=== PATIENT | male | born 1950 | race Caucasian/White ===

== ENCOUNTER 2016-04-03 12:31 | Inpatient (IN) | payer MEDICARE, OTHER ==
[2016-04-03 13:19] LABS: Anisocytosis Slight; Basophils % (A) 0 %; CH 31.3; CHCM 32.8; Eosinophils # (A) 0.1 k/uL (0-0.7); Eosinophils % (A) 2 %; HCT 36.3 % (39.0-53.0); HDW 2.91; HGB 11.7 gm/dL (13.0-17.5); Luc # (Auto) 0.14; Luc % (Auto) 2; Lymphocytes # (A) 0.7 k/uL (1.0-4.8); Lymphocytes % (A) 12 %; MCHC 32.2 g/dL (31.0-37.0); Mean Platelet Volume 8.2; Monocytes # (A) 0.5 k/uL (0-1.0); Monocytes % (A) 8 %; Neutrophils # (A) 4.8 k/uL (1.3-7.7); Neutrophils % (A) 76 %; RBC 3.78 m/uL (4.30-5.90); RDW 16.4 % (11.5-15.5); WBC 6.3 k/uL (3.8-10.6); WBC (Perox) 6.46
--- NOTE | 2016-04-03 13:20 | XR ---
EXAMINATION TYPE: XR chest 2V DATE OF EXAM: 04/03/2016 1:12 PM COMPARISON: 09/06/2015 HISTORY: Difficulty breathing FINDINGS: The lungs are clear and there is no pneumothorax or focal pneumonia. Diffuse interstitial pattern a nd cardiomegaly noted. Degenerative change of the spine. Tiny left pleural effusion. Ill-defined dens ity overlying the medial aspect of the right upper lobe. Postsurgical change right shoulder. IMPRESSION: 1. Cardiomegaly with small left pleural effusion correlate, for mild venous congestion. 2. Vague nodularity along the medial margin the right upper lobe could be on the basis of superimpose d structures. Neoplasm or infiltrate felt less likely. Short-term follow-up PA and lateral views the chest recommended.
[2016-04-03 13:24] LABS: ALT 33 U/L (21-72); AST 41 U/L (17-59); Alkaline Phosphatase 82 U/L (38-126); Anion Gap 11 mmol/L; Blood Urea Nitrogen 16 mg/dL (9-20); Calcium 8.9 mg/dL (8.4-10.2); Carbon Dioxide 26 mmol/L (22-30); Chloride 107 mmol/L (98-107); Glucose 104 mg/dL (74-99); Magnesium 1.7 mg/dL (1.6-2.3); Non-African American GFR(MDRD) >60 (>60 ml/min/1.73 sqM); Sodium 144 mmol/L (137-145); Total Protein 6.7 g/dL (6.3-8.2)
[2016-04-03 13:29] LABS: INR 2.6 (<1.1); Partial Thromboplastin Time 30.2 sec (22.0-30.0); Potassium 5.2 mmol/L (3.5-5.1); Prothrombin Time 24.7 sec (9.0-12.0)
[2016-04-03] MEDS ORDERED: predniSONE 20 MG TAB PO STA (13:48)
[2016-04-03] MEDS ORDERED: IPRATROPIUM-ALBUTEROL 3 ML NEB INHALATION STA (13:48)
[2016-04-03] MEDS ORDERED: LEVALBUTEROL NEB 1.25 MG/3 ML AMP INHALATION STA (14:00)
[2016-04-03] MEDS ORDERED: IPRATROPIUM 0.5 MG/2.5 ML NEBU INHALATION STA (14:01)
[2016-04-03 14:03] LABS: Creatine Kinase 88 U/L (55-170)
[2016-04-03 14:16] LABS: Creatine Kinase MB 1.2 ng/mL (0.0-2.4); Troponin I <0.012 ng/mL (0.000-0.034)
[2016-04-03 15:06] LABS: Appearance,Urine Clear (Clear); Bilirubin,Urine Negative (Negative); Glucose,Urine (UA) Negative (Negative); Ketones,Urine Negative (Negative); Leukocyte Esterase,Urine Negative (Negative); Nitrite,Urine Negative (Negative); PH, Urine 5.5 (5.0-8.0); Protein,Urine Negative (Negative); Specific Gravity,Urine 1.016 (1.001-1.035); UA Billing (MACRO vs. MICRO) CHEM; Urobilinogen,Urine <2.0 mg/dL (<2.0)
[2016-04-03] MEDS ORDERED: FUROSEMIDE 10 MG/ML 4 ML VIAL IV STA (15:55)
--- NOTE | 2016-04-03 16:48 | ED ---
SOB HPI - General Chief Complaint: Shortness of Breath Stated Complaint: exacerbation CHF Time Seen by Provider: 04/03/16 12:36 Source: EMS, RN notes reviewed Mode of arrival: EMS Limitations: no limitations - History of Present Illness Initial Comments: This patient is 66-year-old man who presents with shortness of breath as well as cough with a little bit of white sputum and some lower extremity edema. He states the symptoms have been getting worse over approximately a day. He does have history of both COPD and CHF and states it feels like the heart failure has been flaring up. Patient denies any preceding chest pain. He denies change in urination or pain or swelling of the calves. MD Complaint: shortness of breath, cough Onset/Timin -: days(s) - Related Data Home Medications Medication Instructions Recorded Confirmed Warfarin [Coumadin] 5 mg PO SUTUWETHSA 05/17/14 04/03/16 Warfarin [Coumadin] 7.5 mg PO MOFR 05/17/14 04/03/16 Enalapril Maleate [Vasotec] 20 mg PO DAILY 04/27/15 04/03/16 Pravastatin Sodium [Pravachol] 20 mg PO HS 04/27/15 04/03/16 Omeprazole [PriLOSEC] 20 mg PO AC-BRKT 09/06/15 04/03/16 amLODIPine [Norvasc] 2.5 mg PO DAILY 09/06/15 04/03/16 glipiZIDE [Glucotrol] 5 mg PO AC-BRKFST 09/06/15 04/03/16 Budesonide [Pulmicort Flexhaler] 1 puff INHALATION RT-BID 04/03/16 04/03/16 Docusate [Colace] 100 mg PO BID 04/03/16 04/03/16 Folic Acid/Multivit-Min/Lutein 1 tab PO DAILY 04/03/16 04/03/16 [Therapeutic-M Tablet] Gabapentin [Neurontin] 400 mg PO TID 04/03/16 04/03/16 Loratadine [Claritin] 10 mg PO DAILY 04/03/16 04/03/16 Metoprolol Succinate (ER) [Toprol 25 mg PO DAILY 04/03/16 04/03/16 Xl] Potassium Chloride [Klor-Con 20] 20 meq PO BID 04/03/16 04/03/16 Tamsulosin HCl [Flomax] 0.4 mg PO DAILY 04/03/16 04/03/16 Previous Rx's Medication Instructions Recorded Furosemide [Lasix] 40 mg PO DAILY #30 tab 02/08/14 Allergies Allergy/AdvReac Type Severity Reaction Status Date / Time albuterol Allergy Rapid Verified 04/03/16 12:42 Heart Rate Fish Containing Products Allergy Unknown Verified 04/03/16 12:54 Review of Systems ROS Statement: Those systems with pertinent positive or pertinent negative responses have been documented in the HPI. ROS Other: All systems not noted in ROS Statement are negative. Constitutional: Denies: fever, chills, weakness Respiratory: Reports: cough, dyspnea. Denies: hemoptysis Cardiovascular: Reports: orthopnea, edema. Denies: chest pain, palpitations, syncope Gastrointestinal: Denies: abdominal pain, nausea, vomiting Genitourinary: Denies: dysuria, hematuria Musculoskeletal: Denies: back pain Skin: Denies: rash Neurological: Denies: headache, weakness, numbness Past Medical History Past Medical History: Atrial Fibrillation, Diabetes Mellitus, Hyperlipidemia, Hypertension, Pneumonia, Prostate Disorder History of Any Multi-Drug Resistant Organisms: None Reported Past Surgical History: Hernia Repair, Joint Replacement, Orthopedic Surgery Additional Past Surgical History / Comment(s): carpel tunnel Past Psychological History: Depression Smoking Status: Never smoker Past Alcohol Use History: None Reported Past Drug Use History: None Reported - Past Family History Father History Unknown: Yes Additional Family Medical History / Comment(s): PT WAS ADOPTED Mother History Unknown: Yes Additional Family Medical History / Comment(s): PT WAS ADOPTED General Exam Limitations: no limitations General appearance: alert, in no apparent distress, obese Head exam: Present: atraumatic, normocephalic Eye exam: Present: normal appearance. Absent: scleral icterus, conjunctival injection Neck exam: Present: normal inspection Respiratory exam: Present: wheezes (Mild expiratory), rales (Bilateral bases). Absent: rhonchi, stridor, chest wall tenderness, accessory muscle use Cardiovascular Exam: Present: regular rate, irregular rhythm, normal heart sounds. Absent: systolic murmur, diastolic murmur, rubs, gallop GI/Abdominal exam: Present: soft. Absent: distended, tenderness, guarding, rebound, mass Extremities exam: Present: normal inspection, normal capillary refill, pedal edema. Absent: calf tenderness Back exam: Absent: CVA tenderness (R), CVA tenderness (L) Neurological exam: Present: alert Skin exam: Present: warm, dry, intact, normal color. Absent: rash Course Vital Signs 04/03/16 04/03/16 04/03/16 12:40 13:40 14:17 Temperature 98.0 F Pulse Rate 62 58 L 55 L Respiratory 20 Rate Blood Pressure 150/79 133/63 O2 Sat by Pulse 99 96 Oximetry 04/03/16 04/03/16 04/03/16 14:40 14:42 15:40 Temperature Pulse Rate 60 70 58 L Respiratory Rate Blood Pressure 161/66 170/63 O2 Sat by Pulse 94 L 98 Oximetry 04/03/16 16:40 Temperature Pulse Rate 58 L Respiratory Rate Blood Pressure 147/68 O2 Sat by Pulse 100 Oximetry Medical Decision Making - Lab Data Result diagrams: 04/03/16 12:37 04/03/16 12:37 Lab Results 04/03/16 04/03/16 04/03/16 Range/Units 12:37 12:37 12:37 WBC 6.3 (3.8-10.6) k/uL RBC 3.78 L (4.30-5.90) m/uL Hgb 11.7 L (13.0-17.5) gm/dL Hct 36.3 L (39.0-53.0) % MCV 96.0 (80.0-100.0) fL MCH 31.0 (25.0-35.0) pg MCHC 32.2 (31.0-37.0) g/dL RDW 16.4 H (11.5-15.5) % Plt Count 215 (150-450) k/uL Neutrophils % 76 % Lymphocytes % 12 % Monocytes % 8 % Eosinophils % 2 % Basophils % 0 % Neutrophils # 4.8 (1.3-7.7) k/uL Lymphocytes # 0.7 L (1.0-4.8) k/uL Monocytes # 0.5 (0-1.0) k/uL Eosinophils # 0.1 (0-0.7) k/uL Basophils # 0.0 (0-0.2) k/uL Anisocytosis Slight PT (9.0-12.0) sec INR (<1.1) APTT (22.0-30.0) sec D-Dimer (<0.60) mg/L FEU Sodium 144 (137-145) mmol/L Potassium 5.2 H (3.5-5.1) mmol/L Chloride 107 (98-107) mmol/L Carbon Dioxide 26 (22-30) mmol/L Anion Gap 11 mmol/L BUN 16 (9-20) mg/dL Creatinine 1.02 (0.66-1.25) mg/dL Est GFR (MDRD) Af Amer >60 (>60 ml/min/1.73 sqM) Est GFR (MDRD) Non-Af >60 (>60 ml/min/1.73 sqM) Glucose 104 H (74-99) mg/dL Calcium 8.9 (8.4-10.2) mg/dL Magnesium 1.7 (1.6-2.3) mg/dL Total Bilirubin 1.0 (0.2-1.3) mg/dL AST 41 (17-59) U/L ALT 33 (21-72) U/L Alkaline Phosphatase 82 (38-126) U/L Total Creatine Kinase 88 (55-170) U/L CK-MB (CK-2) 1.2 (0.0-2.4) ng/mL CK-MB (CK-2) Rel Index 1.4 Troponin I <0.012 (0.000-0.034) ng/mL NT-Pro-B Natriuret Pep pg/mL Total Protein 6.7 (6.3-8.2) g/dL Albumin 3.7 (3.5-5.0) g/dL Urine Color Urine Appearance (Clear) Urine pH (5.0-8.0) Ur Specific [place] (1.001-1.035) Urine Protein (Negative) Urine Glucose (UA) (Negative) Urine Ketones (Negative) Urine Blood (Negative) Urine Nitrate (Negative) Urine Bilirubin (Negative) Urine Urobilinogen (<2.0) mg/dL Ur Leukocyte Esterase (Negative) 04/03/16 04/03/16 04/03/16 Range/Units 12:37 12:37 14:55 WBC (3.8-10.6) k/uL RBC (4.30-5.90) m/uL Hgb (13.0-17.5) gm/dL Hct (39.0-53.0) % MCV (80.0-100.0) fL MCH (25.0-35.0) pg MCHC (31.0-37.0) g/dL RDW (11.5-15.5) % Plt Count (150-450) k/uL Neutrophils % % Lymphocytes % % Monocytes % % Eosinophils % % Basophils % % Neutrophils # (1.3-7.7) k/uL Lymphocytes # (1.0-4.8) k/uL Monocytes # (0-1.0) k/uL Eosinophils # (0-0.7) k/uL Basophils # (0-0.2) k/uL Anisocytosis PT 24.7 H (9.0-12.0) sec INR 2.6 (<1.1) APTT 30.2 H (22.0-30.0) sec D-Dimer 0.38 (<0.60) mg/L FEU Sodium (137-145) mmol/L Potassium (3.5-5.1) mmol/L Chloride (98-107) mmol/L Carbon Dioxide (22-30) mmol/L Anion Gap mmol/L BUN (9-20) mg/dL Creatinine (0.66-1.25) mg/dL Est GFR (MDRD) Af Amer (>60 ml/min/1.73 sqM) Est GFR (MDRD) Non-Af (>60 ml/min/1.73 sqM) Glucose (74-99) mg/dL Calcium (8.4-10.2) mg/dL Magnesium (1.6-2.3) mg/dL Total Bilirubin (0.2-1.3) mg/dL AST (17-59) U/L ALT (21-72) U/L Alkaline Phosphatase (38-126) U/L Total Creatine Kinase (55-170) U/L CK-MB (CK-2) (0.0-2.4) ng/mL CK-MB (CK-2) Rel Index Troponin I (0.000-0.034) ng/mL NT-Pro-B Natriuret Pep 2820 pg/mL Total Protein (6.3-8.2) g/dL Albumin (3.5-5.0) g/dL Urine Color Yellow Urine Appearance Clear (Clear) Urine pH 5.5 (5.0-8.0) Ur Specific [place] 1.016 (1.001-1.035) Urine Protein Negative (Negative) Urine Glucose (UA) Negative (Negative) Urine Ketones Negative (Negative) Urine Blood Negative (Negative) Urine Nitrate Negative (Negative) Urine Bilirubin Negative (Negative) Urine Urobilinogen <2.0 (<2.0) mg/dL Ur Leukocyte Esterase Negative (Negative) - EKG Data -: EKG Interpreted by Ma EKG shows normal: axis (Normal), intervals (Normal), QRS complexes (Low voltage QRS complex) Interpretation: other (Atrial fibrillation with rate approximately 63 bpm) Disposition Clinical Impression: Congestive heart failure Disposition: ADMITTED IP TO THIS [facility] Condition: Fair
[2016-04-03 17:57] LABS: Glucose,Whole Blood 154 mg/dL (75-99)
[2016-04-03] MEDS: GABAPENTIN 400 MG CAP PO SCH ×2 (18:06→21:50)
[2016-04-03] MEDS: WARFARIN 5 MG TAB PO SCH (18:07)
[2016-04-03] MEDS: ACETAMINOPHEN TAB 325 MG TAB PO PRN (20:06)
[2016-04-03] MEDS: DOCUSATE 100 MG CAP PO SCH (20:07)
[2016-04-03] MEDS: POTASSIUM CHLORIDE ER 20 MEQ TAB.ER PO SCH (20:07)
[2016-04-03] MEDS: FUROSEMIDE 10 MG/ML 4 ML VIAL IV SCH (20:07)
[2016-04-03] MEDS: PRAVASTATIN SODIUM 20 MG TAB PO SCH (20:07)
[2016-04-03 20:48] LABS: Glucose,Whole Blood 168 mg/dL (75-99)
[2016-04-03] MEDS: BUDESONIDE 0.5 MG/2 ML NEBU INHALATION SCH (23:28)
[2016-04-03] MEDS: IPRATROPIUM-ALBUTEROL 3 ML NEB INHALATION SCH (23:28)
--- NOTE | 2016-04-04 07:30 | HP ---
DATE OF ADMISSION: 04/03/2016 PRESENTING COMPLAINT: Short of breath. HISTORY OF PRESENTING COMPLAINT: This is a 66-year-old patient of Dr. Jessica Brody with extensive medical history. Patient's chronic medical conditions include atrial fibrillation, diabetes mellitus type 2, hyperlipidemia, hypertension, prostate disorder, depression, also congestive heart failure, EF of 50% to 55%, pulmonary hypertension. The patient has been progressively getting more and more short of breath, was recently in [facility] where he was treated for bronchospasm and atrial fibrillation. The patient went to see Dr. Jessica Brody today and she sent the patient to the ER the way he looked. Patient noted to have wheezing, cough, sputum production yellow-green color. Appetite has dwindled. Denies any fever. Feels tired. Edema is present REVIEW OF SYSTEMS: CONSTITUTIONAL: Tired. HEENT: None. RESPIRATORY: As above. CARDIOVASCULAR: As above. GASTROINTESTINAL: None. GENITOURINARY: None. MUSCULOSKELETAL: Aches and pains in his joints. Neck pain. DERMATOLOGICAL: None. HEMATOLOGICAL: None. LYMPHATICS: None. PSYCHIATRY: None. NEUROLOGICAL: None. Past history of CHF with EF 50%, tricuspid regurgitation, pulmonary hypertension, hyperlipidemia, diabetes mellitus type 2, cervical spine DJD, atrial fibrillation. PAST SURGICAL HISTORY: Hernia repair, joint replacement, carpal tunnel. SOCIAL HISTORY: Does not smoke. Lives in a place with different people having single apartment. No smoking. No alcohol. FAMILY HISTORY: Reviewed, noncontributory to presentation. HOME MEDICATIONS: 1. Coumadin 7.5 mg Thursday and Thursday and 5 mg on Thursday, Thursday, Thursday, , Thursday. 2. Pravachol 20 mg q.h.s. 3. Potassium 20 mEq p.o. b.i.d. 4. Therapeutic M 1 tablet p.o. daily. 5. Glucotrol 5 mg at breakfast. 6. Prilosec 20 mg p.o. breakfast. 7. Toprol XL 25 mg p.o. daily. 8. Claritin 10 mg p.o. daily. 9. Norvasc 2.5 mg p.o. daily. 10. Neurontin 400 mg p.o. t.i.d. 11. Lasix 40 mg p.o. daily. 12. Vasotec 20 mg p.o. daily. 13. Colace 100 mg p.o. b.i.d. 14. Flomax 0.4 mg p.o. daily. 15. Pulmicort Flexhaler 1 puff b.i.d. Allergies to ALBUTEROL and FISH OIL. On examination, temperature 98.3, pulse 86, respiration 20, blood pressure 145/72, pulse ox 96% on 2 L. GENERAL APPEARANCE: Morbidly obese; BMI of 44. Lying in bed, slight short of breath. EYES: Pupils equal. Conjunctivae normal. HEENT: External appearance of nose and ears normal. Oral cavity normal. NECK: JVD unable to assess. Mass not palpable. RESPIRATORY: Effort increased. LUNGS: Diminished breath sounds, some wheezing. CARDIOVASCULAR: First and second seconds normal. Edema present. ABDOMEN: Distended, soft. Liver and spleen not palpable. LYMPHATIC: No lymph node palpable in neck or axillae. PSYCHIATRY: Alert and oriented x3. Mood and affect normal. NEUROLOGICAL: Pupils equal. Cranial nerves grossly intact. Power and sensation grossly intact. MUSCULOSKELETAL: Evidence of osteoarthritis. INVESTIGATIONS: White count 6.3, hemoglobin 11.7. INR 2.6. Potassium 5.2. BUN and creatinine normal. ProBNP 2820. Chest x-ray shows possible ( ) on the right side. ASSESSMENT: 1. Right middle lobe pneumonia, consider gram-negative organism. 2. Acute bronchospasm. 3. Possibly acute on chronic congestive heart failure exacerbation diastolic dysfunction; ejection fraction 50% to 55% in 2014. 4. Moderate to severe tricuspid regurgitation. 5. Moderate severe pulmonary hypertension. 6. Essential hypertension. 7. Hyperlipidemia. 8. Diabetes mellitus, type 2. 9. Coumadin monitoring for therapeutic level. 10. Obesity, body mass index greater than 40, morbid type. 11. Cervical spine degenerative joint disease. 12. Persistent atrial fibrillation, rate controlled. PLAN: Patient is put on nebulized bronchodilator. Home medications are resumed. Patient will also get an IV Lasix. Will get Cardiology consultation. Patient also put on ceftriaxone. Care was discussed with the patient.
[2016-04-04] MEDS: FUROSEMIDE 10 MG/ML 4 ML VIAL IV SCH (07:46)
[2016-04-04 07:47] LABS: INR 2.4 (<1.1); Prothrombin Time 23.3 sec (9.0-12.0)
[2016-04-04] MEDS: GABAPENTIN 400 MG CAP PO SCH ×3 (07:47→22:00)
[2016-04-04] MEDS: PANTOPRAZOLE 40 MG TABLET PO SCH (07:47)
[2016-04-04] MEDS: DOCUSATE 100 MG CAP PO SCH ×2 (07:48→22:00)
[2016-04-04 07:50] LABS: Glucose,Whole Blood 130 mg/dL (75-99)
[2016-04-04] MEDS: amLODIPine 2.5 MG TAB PO SCH (08:00)
[2016-04-04] MEDS: POTASSIUM CHLORIDE ER 20 MEQ TAB.ER PO SCH ×2 (08:00→22:01)
[2016-04-04] MEDS: LISINOPRIL 20 MG TAB PO SCH (08:00)
[2016-04-04 08:01] LABS: Anion Gap 12 mmol/L; Blood Urea Nitrogen 20 mg/dL (9-20); Calcium 9.2 mg/dL (8.4-10.2); Carbon Dioxide 27 mmol/L (22-30); Chloride 104 mmol/L (98-107); Glucose 149 mg/dL (74-99); Non-African American GFR(MDRD) >60 (>60 ml/min/1.73 sqM); Potassium 4.6 mmol/L (3.5-5.1); Sodium 143 mmol/L (137-145)
[2016-04-04] MEDS: IPRATROPIUM-ALBUTEROL 3 ML NEB INHALATION SCH ×4 (08:31→19:59)
[2016-04-04] MEDS: BUDESONIDE 0.5 MG/2 ML NEBU INHALATION SCH ×2 (08:31→19:59)
[2016-04-04] MEDS: METOPROLOL SUCCINATE (ER) 25 MG TAB.ER.24H PO SCH (09:14)
[2016-04-04] MEDS: glipiZIDE 5 MG TAB PO SCH (09:14)
[2016-04-04] MEDS: TAMSULOSIN 0.4 MG CAP.ER.24H PO SCH (09:15)
[2016-04-04] MEDS: ACETAMINOPHEN TAB 325 MG TAB PO PRN ×2 (09:17→21:59)
[2016-04-04 12:11] LABS: Glucose,Whole Blood 94 mg/dL (75-99)
[2016-04-04] MEDS ORDERED: RX INFO: IV CONTRAST WAS GIVEN 1 EACH MISC MISCELLANE PRN (13:32)
[2016-04-04 14:08] VITALS: BMI 48.6
--- NOTE | 2016-04-04 15:29 | CT ---
EXAMINATION TYPE: CT chest w con DATE OF EXAM: 04/04/2016 3:06 PM COMPARISON: 04/03/2016 HISTORY: 66-year-old male shortness of breath, history of mass. TECHNIQUE: Contiguous axial scanning of the chest after the administration of 100 mL of Omnipaque 300 . Coronal/sagittal reconstructions performed. CT DLP: 584.6mGycm. Automatic exposure control utilized for a dose reduction. FINDINGS: The heart is mildly enlarged without pericardial effusion. Severe coronary vessel calcifications are present under a marker for coronary artery disease. Ascending aorta measures at the upper limits of normal at 3.5 cm. Mild apical scarring calcifications with conventional arch vessel branching anatomy. Mildly enlarged caliber to the main right and left pulmonary arteries at 2.6 cm each suggesting under lying pulmonary arterial hypertension. Nonenlarged mediastinal lymph nodes are present measuring up to 9 mm in the paratracheal region and 1 .0 cm subcarinal region. No thoracic lymphadenopathy by CT size criteria. There is distention of the azygos vein. There is a fluid attenuating structure seen along the superior right heart margin extending along the right lateral aspect of the ascending aorta and IVC. This structure measures up to 4.5 cm wide, 3.4 cm AP, and 7.1 cm craniocaudal. There is an irregular focal opacity in the right suprahilar region measuring 1 cm, axial image 18 and coronal image 68. Numerous scattered pulmonary nodules are present throughout measuring from 4 to 6 mm. For example, re ning to the lower lobe axial image 46 and peripheral right base axial image 39. There is some patchy posterior left basilar airspace opacity with adjacent 6 mm pulmonary nodule, axi al image 46. Scattered groundglass is demonstrated such as within the superior segment right lower lobe axial imag e 27 and inferior lingula, axial image 33. No significant pleural effusion. Visualized upper abdomen shows an exophytic 2.8 cm cyst from the lateral left kidney. Some prominent right retrocrural lymph nodes are nonspecific measuring 8 mm and appear to have been present on 2014.. Bones: Moderate endplate spondylosis especially in the mid to lower thoracic spine. No osseous destru ctive process. IMPRESSION: 1. Mild cardiomegaly, suspected pulmonary arterial hypertension, and distention of the azygos vein. C orrelate for mild fluid overload. There is no pleural effusion or roma pulmonary edema. 2. An irregular 1 cm right suprahilar pulmonary nodule. Recommend 3 month follow-up exam to reassess this area. Early lung cancer is not excluded at this time. 3. Patchy airspace disease posterior left base could represent an infectious infiltrate. Clinically c orrelate. Other scattered patchy areas of groundglass could represent the same process. 4. Fluid density structure along the upper right heart margin and ascending aorta measures up to 7.1 cm. Findings could represent an unusual pericardial recess or atypical position of a pericardial cyst . This can be reassessed at follow-up. 5. Additional bilateral pulmonary nodules measuring up to 6 mm. These should be followed. 2 years of stability would support a benign etiology.
[2016-04-04] MEDS: FUROSEMIDE 40 MG TAB PO SCH (15:46)
[2016-04-04] MEDS: MULTIVITAMINS, THERA 1 EACH TAB PO SCH (15:47)
--- NOTE | 2016-04-04 15:53 | CONS ---
DATE OF CONSULTATION: This is a 66-year-old gentleman who is obese, has type 2 diabetes, hypertension, hyperlipidemia, persistent atrial fibrillation, on anticoagulation. He went to see his primary care physician, Dr. Jessica Brody, and was then advised to go to the emergency room. He has been having increasing cough, shortness of breath, productive sputum, and with these symptoms he came into the hospital. He also had some abdominal hernia in the past and complained of some epigastric and lower chest discomfort. Discomfort in the chest is atypical, and this has resolved. Initial troponin is normal. He is resting comfortably without symptoms. He has a history of smoking in the past. He does not smoke now. He also has a history of persistent atrial fibrillation, degenerative joint disease, type 2 diabetes, history of COPD with some reactive airway disease component. At the time of my evaluation he is resting comfortably without symptoms. PAST MEDICAL HISTORY: 1. Atrial fibrillation, on anticoagulation with good rate control. 2. Type 2 diabetes. 3. Hypertension. 4. Hyperlipidemia. 5. Obesity. 6. History of bronchial asthma/ COPD. Medications at home include: 1. Coumadin. 2. Pravachol. 3. Glucotrol. 4. Prilosec. 5. Toprol XL 25 mg daily. 6. Norvasc. 7. Lasix 40 mg daily. 8. Vasotec 20 mg daily. 9. Inhalers. SOCIAL HISTORY: He does not smoke at this time but is a past smoker. He is status post joint replacement, hernia repair. Previous echocardiogram apparently was in the range of about 55%. This was about 2 years ago. At the time of my evaluation he is comfortable resting without symptoms. Physical examination revealed a blood pressure of 140/70. Pulse rate is about 80 and irregular. HEENT: Unremarkable. Fundus was not examined by me. Neck is supple. There is JVD of at least 1 to 1.5 cm. There is no carotid bruit. Heart exam reveals S1, S2 with a short systolic murmur and irregular rhythm. Lungs reveal diminished air entry in bilateral lung samson. No rales. ABDOMEN: Soft and nontender. Lower extremities reveal diminished pulses. CENTRAL NERVOUS SYSTEM: Grossly no focal deficits. EKG revealed atrial fibrillation, controlled ventricular rate, nonspecific ST-T changes, low voltage criteria, non-diagnostic inferior Q waves. Laboratory data revealed unremarkable troponins, modest elevation of BNP. Chest x-ray raises the possibility of malignancy with nodularity on the medial margin of the right upper lobe. There is no significant congestion. IMPRESSION: 1. Exacerbation of chronic obstructive pulmonary disease. 2. Atypical chest pain. 3. Abdominal discomfort. 4. Chronic atrial fibrillation, controlled ventricular rate. 5. Probable pneumonia with abnormal chest x-ray. Rule out malignancy. RECOMMENDATIONS: I am recommending that we switch him from IV to oral Lasix and get an echocardiogram to reassess LV function, since the last study was 2 years ago. I will check an additional troponin. Advised to have a CT scan of the chest without contrast and also seek pulmonary input from Dr. Rowell. I discussed my thoughts in detail with the patient. Thank you very much for the consult.
--- NOTE | 2016-04-04 16:14 | P.CNPUL ---
History of Present Illness Consult date: 04/04/16 Reason for consult: dyspnea, abnormal CXR/CT History of present illness: 66-year-old morbidly obese male patient, known to me for his obstructive sleep apnea that was diagnosed several years back and the patient was found to have moderately severe disease with an apnea popping index of 21 and was treated with CPAP. The patient also has multiple other medical comorbidities including chronic atrial fibrillation, diabetes mellitus, hyperlipidemia, moderately severe pulmonary hypertension as evident on previous echocardiograms. The patient states that he was in the hospital at [facility] approximately 10 days ago for complications of atrial fibrillation. Apparently was having A. fib with RVR and he was controlled and discharged home. Note that he is on long-term medical evaluation with warfarin. Following his discharge, he started expressing some cough and sputum production or shortness of breath and for that reason he presented today [facility] for further advice. Note that he has chronic atypical chest pain which she describes to be over the anterior chest and migrating to the right and left side without any association to exertion or activity. No pleurisy. No hemoptysis. No fever or chills. No major swelling in lower extremities. His chest x-ray shows a vague no other past in the right upper lobe and there is some potential infiltration of the retrocardiac area. For that reason a pulmonary consultation was requested. The patient is a nonsmoker. No reported aspiration. No travel history. Review of Systems Further review of system was done and the positive findings are almost above the history of present illness. The patient remains in atrial fibrillation for now. He is on long-term and coagulation. No Falls. No head trauma. No other complaints otherwise. Past Medical History Past Medical History: Atrial Fibrillation, Diabetes Mellitus, Hyperlipidemia, Hypertension, Pneumonia, Prostate Disorder Additional Past Medical History / Comment(s): Morbid obesity, obstructive sleep apnea maintained on CPAP with a baseline apnea popping index of 21, chronic atrial fibrillation, diabetes mellitus type 2, hypertension, hyperlipidemia, obesity, kidney cyst, peripheral neuropathy, restless leg syndrome, gout, osteoarthritis, umbilical hernia, history of hepatitis C viral infection, cataracts, chronic back pain, carpal tunnel disease, History of Any Multi-Drug Resistant Organisms: None Reported Past Surgical History: Hernia Repair, Joint Replacement, Orthopedic Surgery Additional Past Surgical History / Comment(s): carpel tunnel Past Anesthesia/Blood Transfusion Reactions: No Reported Reaction Past Psychological History: Depression Additional Psychological History / Comment(s): AT TIME OF THIS ADMIT, PT DENIES ANY PROBLEM WITH DEPRESSION OR ANY SUICIDAL THOUGHTS. PT LIVES IN HOUSE HAS 4 HOUSE MATES. RECIEVES MEALS ON WHEELS.TAKES THE BUS. Smoking Status: Never smoker Past Alcohol Use History: None Reported Past Drug Use History: None Reported - Past Family History Father History Unknown: Yes Additional Family Medical History / Comment(s): PT WAS ADOPTED Mother History Unknown: Yes Additional Family Medical History / Comment(s): PT WAS ADOPTED Medications and Allergies Home Medications Medication Instructions Recorded Confirmed Type Warfarin [Coumadin] 5 mg PO SUTUWETHSA 05/17/14 04/03/16 History Warfarin [Coumadin] 7.5 mg PO MOFR 05/17/14 04/03/16 History Enalapril Maleate [Vasotec] 20 mg PO DAILY 04/27/15 04/03/16 History Pravastatin Sodium [Pravachol] 20 mg PO HS 04/27/15 04/03/16 History Omeprazole [PriLOSEC] 20 mg PO AC-BRKFST 09/06/15 04/03/16 History amLODIPine [Norvasc] 2.5 mg PO DAILY 09/06/15 04/03/16 History glipiZIDE [Glucotrol] 5 mg PO AC-BRKFST 09/06/15 04/03/16 History Budesonide [Pulmicort Flexhaler] 1 puff INHALATION RT-BID 04/03/16 04/03/16 History Docusate [Colace] 100 mg PO BID 04/03/16 04/03/16 History Folic Acid/Multivit-Min/Lutein 1 tab PO DAILY 04/03/16 04/03/16 History [Therapeutic-M Tablet] Gabapentin [Neurontin] 400 mg PO TID 04/03/16 04/03/16 History Loratadine [Claritin] 10 mg PO DAILY 04/03/16 04/03/16 History Metoprolol Succinate (ER) [Toprol 25 mg PO DAILY 04/03/16 04/03/16 History Xl] Potassium Chloride [Klor-Con 20] 20 meq PO BID 04/03/16 04/03/16 History Tamsulosin HCl [Flomax] 0.4 mg PO DAILY 04/03/16 04/03/16 History Allergies Allergy/AdvReac Type Severity Reaction Status Date / Time albuterol Allergy Rapid Verified 04/03/16 12:42 Heart Rate Fish Containing Products Allergy Unknown Verified 04/03/16 12:54 Physical Exam Vitals: Vital Signs Temp Pulse Pulse Pulse Resp BP BP 04/04/16 15:00 97.9 F 81 20 116/64 04/04/16 08:42 68 04/04/16 08:31 68 04/04/16 07:00 97.7 F 54 L 18 04/03/16 22:20 99.4 F 81 24 04/03/16 22:10 81 24 04/03/16 18:16 98.3 F 86 20 04/03/16 16:40 58 L 147/68 BP Pulse Ox 04/04/16 15:00 93 L 04/04/16 08:42 04/04/16 08:31 04/04/16 07:00 130/61 95 04/03/16 22:20 116/88 92 L 04/03/16 22:10 04/03/16 18:16 145/72 96 04/03/16 16:40 100 Intake and Output 04/04/16 04/04/16 04/04/16 06:59 14:59 22:59 Intake Total 240 60 Balance 240 60 Intake: IV 60 .9 flush 10 cefTRIAXone 1,000 mg In 50 Sodium Chloride 0.9% 50 ml @ 100 mls/hr IVPB Q24HR [facility] Rx#:[id number] Oral 240 Other: # Voids 2 Weight 132.5 kg Patient Weight 04/05/16 06:59 Weight 132.5 kg Morbidly obese, calm and comfortable not in acute distress.Head exam was generally normal. There was no scleral icterus or corneal arcus. Mucous membranes were moist. Neck is short and supple and there is significant crowding of the posterior oropharynx. His daughter neck masses. Lungs sounds are diminished and there are some scattered rhonchi heard bilaterally throughout the lung samson. Heart sounds are irregular, positive S1-S2, no S3, no S4, no murmurs. Abdomen obese soft nontender. There is an umbilical hernia which is easily reducible. There is no direct tenderness or rebound tenderness or guarding.Examination of the extremities revealed easily palpable radial, femoral and pedal pulses. There was no cyanosis, clubbing or edema. Results - Laboratory Findings CBC and BMP: 04/03/16 12:37 04/04/16 07:22 PT/INR, D-dimer PT 23.3 sec (9.0-12.0) H 04/04/16 07:22 INR 2.4 (<1.1) 04/04/16 07:22 D-Dimer 0.38 mg/L FEU (<0.60) 04/03/16 12:37 Abnormal lab findings: Abnormal Labs 04/03/16 04/03/16 04/04/16 17:56 20:46 07:22 PT Glucose 149 H POC Glucose (mg/dL) 154 H 168 H 04/04/16 04/04/16 07:22 07:34 PT 23.3 H Glucose POC Glucose (mg/dL) 130 H - Diagnostic Findings Chest x-ray: image reviewed Assessment and Plan Plan: Assessment 1 acute bronchitis. The patient is presenting with symptoms of acute bronchitis with cough and congestion and some dyspnea. Chest x-ray is showing some nodular opacity in the right upper lobe and vague infiltration of the left retrocardiac space. The patient will have a computed tomography scan of the chest to better characterize abnormalities 2 morbid obesity 3 obstructive sleep apnea. Based on apnea popping index of 21 and the patient was supposed to be on a CPAP pressure of 11 cm of water. 4 chronic atrial fibrillation, rate controlled with a therapeutic PT/INR. 5 diabetes mellitus type 2 6 hypertension 7 hyperlipidemia 8 degenerative arthritis 9 long-term articulation for chronic atrial fibrillation fibrillation and the patient has a therapeutic PT/INR. Plan Continued IV Rocephin. Proceed with a CAT scan of the chest with contrast for the above-mentioned reasons. We'll continue to follow.
[2016-04-04 17:08] LABS: Glucose,Whole Blood 67 mg/dL (75-99)
--- NOTE | 2016-04-04 17:19 | P.CONS ---
History of Present Illness - Chief Complaint Medical debility - History of Present Illness I had the opportunity to see patient for inpatient rehab consultation with regard to medical debility. He was admitted to [facility] April 03 with COPD exacerbation. Seen by Dr. Rowell who diagnosed acute bronchitis. Chest CT demonstrates at least borderline cardiomegaly and pulmonary hypertension. Noted right supra hilar nodule, bilateral pulmonary nodules and patchy infiltrates. Chest x-ray demonstrated cardiomegaly in the nodularity. PT reports supervision to minimal assistance for functional debility and gait 100 feet with roller walker. Patient reports that he walked a distance of the hallway from room to and of fall and back, with 4 wheeled walker and therapist. Reports independent in room with 4 wheeled walker noted IV is removed. OT prescribed. Previous functional history: As elicited from patient. 66-year-old right- handed white male who is and lives in one one floor home with 3 friends. Describes independent with own cooking, laundry, standup shower leaning against the wall and gait with 4 wheeled walker. Given of driving secondary to sleep apnea. Regular doctor is Dr. Lopez. Family history: Unknown as adopted. Review of Systems Review of systems: ENT: Denies sneezes or discharge. Eyes: Denies discharge or photophobia. Cardiac: Denies chest pain or palpitation. Pulmonary: At least mild shortness of breath with mild chest discomfort that is long-standing. Gastrointestinal: Mild discomfort in abdomen and pelvis, long-standing. Genitourinary: Denies discharge or frequency. Musculoskeletal: Denies muscle or bone aches. Neurologic: Denies motor or sensory change. Endocrine: Denies shakes or sweats. Oncology: Denies cancers. Dermatologic: Denies rash, itching, pruritus. ALLERGY/immunology: Denies sneezes, rashes. Past Medical History Past Medical History: Atrial Fibrillation, Diabetes Mellitus, Hyperlipidemia, Hypertension, Pneumonia, Prostate Disorder Additional Past Medical History / Comment(s): Morbid obesity, obstructive sleep apnea maintained on CPAP with a baseline apnea popping index of 21, chronic atrial fibrillation, diabetes mellitus type 2, hypertension, hyperlipidemia, obesity, kidney cyst, peripheral neuropathy, restless leg syndrome, gout, osteoarthritis, umbilical hernia, history of hepatitis C viral infection, cataracts, chronic back pain, carpal tunnel disease, History of Any Multi-Drug Resistant Organisms: None Reported Past Surgical History: Hernia Repair, Joint Replacement, Orthopedic Surgery Additional Past Surgical History / Comment(s): carpel tunnel Past Anesthesia/Blood Transfusion Reactions: No Reported Reaction Past Psychological History: Depression Additional Psychological History / Comment(s): AT TIME OF THIS ADMIT, PT DENIES ANY PROBLEM WITH DEPRESSION OR ANY SUICIDAL THOUGHTS. PT LIVES IN HOUSE HAS 4 HOUSE MATES. RECIEVES MEALS ON WHEELS.TAKES THE BUS. Smoking Status: Never smoker Past Alcohol Use History: None Reported Past Drug Use History: None Reported - Past Family History Father History Unknown: Yes Additional Family Medical History / Comment(s): PT WAS ADOPTED Mother History Unknown: Yes Additional Family Medical History / Comment(s): PT WAS ADOPTED Medications and Allergies Home Medications Medication Instructions Recorded Confirmed Type Warfarin [Coumadin] 5 mg PO SUTUWETHSA 05/17/14 04/03/16 History Warfarin [Coumadin] 7.5 mg PO MOFR 05/17/14 04/03/16 History Enalapril Maleate [Vasotec] 20 mg PO DAILY 04/27/15 04/03/16 History Pravastatin Sodium [Pravachol] 20 mg PO HS 04/27/15 04/03/16 History Omeprazole [PriLOSEC] 20 mg PO AC-KT 09/06/15 04/03/16 History amLODIPine [Norvasc] 2.5 mg PO DAILY 09/06/15 04/03/16 History glipiZIDE [Glucotrol] 5 mg PO AC-BRKFST 09/06/15 04/03/16 History Budesonide [Pulmicort Flexhaler] 1 puff INHALATION RT-BID 04/03/16 04/03/16 History Docusate [Colace] 100 mg PO BID 04/03/16 04/03/16 History Folic Acid/Multivit-Min/Lutein 1 tab PO DAILY 04/03/16 04/03/16 History [Therapeutic-M Tablet] Gabapentin [Neurontin] 400 mg PO TID 04/03/16 04/03/16 History Loratadine [Claritin] 10 mg PO DAILY 04/03/16 04/03/16 History Metoprolol Succinate (ER) [Toprol 25 mg PO DAILY 04/03/16 04/03/16 History Xl] Potassium Chloride [Klor-Con 20] 20 meq PO BID 04/03/16 04/03/16 History Tamsulosin HCl [Flomax] 0.4 mg PO DAILY 04/03/16 04/03/16 History Allergies Allergy/AdvReac Type Severity Reaction Status Date / Time albuterol Allergy Rapid Verified 04/03/16 12:42 Heart Rate Fish Containing Products Allergy Unknown Verified 04/03/16 12:54 Physical Exam Vitals: Vital Signs Temp Pulse Pulse Pulse Resp BP BP 04/04/16 15:00 97.9 F 81 20 116/64 04/04/16 08:42 68 04/04/16 08:31 68 04/04/16 07:00 97.7 F 54 L 18 130/61 04/03/16 22:20 99.4 F 81 24 116/88 04/03/16 22:10 81 24 04/03/16 18:16 98.3 F 86 20 145/72 Pulse Ox 04/04/16 15:00 93 L 04/04/16 08:42 04/04/16 08:31 04/04/16 07:00 95 04/03/16 22:20 92 L 04/03/16 22:10 04/03/16 18:16 96 Intake and Output 04/04/16 04/04/16 04/04/16 06:59 14:59 22:59 Intake Total 240 60 Balance 240 60 Intake: IV 60 .9 flush 10 cefTRIAXone 1,000 mg In 50 Sodium Chloride 0.9% 50 ml @ 100 mls/hr IVPB Q24HR [facility] Rx#:[id number] Oral 240 Other: # Voids 2 Weight 132.5 kg Patient Weight 04/05/16 06:59 Weight 132.5 kg Skin: Good color, texture, turgor. General: Obese and comfortable appearance. Head: Normocephalic, atraumatic. Eyes: Symmetric. Pupils equal round. Ears: Symmetric. Hearing within normal limits. Mouth: Clear. Neck: Supple. Carotid without bruit. Cardiac: Regular rate and rhythm. Lungs: Clear anteriorly and posteriorly. Abdomen: Soft active nontender, overweight. Extremities: Normal tone. Trace to 1+ edema forelegs and ankles. Neurological: Mental status: Alert, cooperative, pleasant. Cranial nerves: Symmetric facial tone and trapezius. Motor: Good active movement in both arms. Able to move both legs but difficulty elevating off of bed. Sensation: Intact throughout. DTRs: Symmetric and equal throughout, absent. Mobility: In the middle nursing care and unable to sit or stand. Results CBC & Chem 7: 04/03/16 12:37 04/04/16 07:22 Labs: Abnormal Lab Results - Last 24 Hours (Table) 04/03/16 04/03/16 04/04/16 Range/Units 17:56 20:46 07:22 PT (9.0-12.0) sec Glucose 149 H (74-99) mg/dL POC Glucose (mg/dL) 154 H 168 H (75-99) mg/dL 04/04/16 04/04/16 04/04/16 Range/Units 07:22 07:34 17:05 PT 23.3 H (9.0-12.0) sec Glucose (74-99) mg/dL POC Glucose (mg/dL) 130 H 67 L (75-99) mg/dL Chest x-ray: report reviewed (Cardiomegaly and nodularity.) CT scan - chest: report reviewed (At least borderline cardiomegaly and pulmonary hypertension. Right suprahilar nodule as well as bilateral pulmonary nodules noted. Possible. She infiltrates, as well.) Assessment and Plan (1) Pneumonia Status: Acute Plan: Impression: 1. Medical debility. 2. COPD exacerbation. 3. Acute bronchitis with pneumonia. 4. Morbid obesity. 5. Diabetes. 6. Hypertension. 7. Hyperlipidemia. 8. Active fibrillation. 9. Sleep apnea. Comments and plan: At this time physical and occupational therapies prescribed. Anticipate patient should do well functionally, that is anticipate functional return or improvement with medical treatment and resolution of problem. Note he was just admitted yesterday and so there has been no delay in his rehabilitation program.
[2016-04-04 17:28] LABS: Glucose,Whole Blood 69 mg/dL (75-99)
[2016-04-04] MEDS ORDERED: WARFARIN 7.5 MG TAB PO SCH (18:00)
[2016-04-04] MEDS: methylPREDNISolone SOD SUCCI 40 MG/ML 1 ML VIAL IV SCH ×2 (18:11→23:50)
[2016-04-04] MEDS: AZITHROMYCIN 500 MG TAB PO SCH (18:11)
--- NOTE | 2016-04-04 19:00 | PN ---
DATE OF SERVICE: 04/04/2016 PRESENTING COMPLAINT: Short of breath. INTERVAL HISTORY: This patient was admitted with what appears to be pneumonia, bronchospasm; possible CHF exacerbation. Patient has severe secondary pulmonary hypertension. Patient's sputum production actually has gone down. Two-D echo is pending. Cardiology switched the Lasix to p.o. Review of systems done for constitutional, cardiovascular, GI, pulmonary; relevant findings as above. Current medications are reviewed and include IV ceftriaxone, nebulized bronchodilator, Coumadin. On examination, temperature 97.9, pulse 80, respiration 20, blood pressure 116/64, pulse ox 93% on room air. GENERAL APPEARANCE: Sitting up, not in distress. EYES: Pupils equal. Conjunctivae normal. NECK: JVD unable to assess. Mass not palpable. RESPIRATORY: Effort increased. LUNGS: Expiratory wheezing. CARDIOVASCULAR: First and second sounds normal. Some edema present. ABDOMEN: Soft, nontender. Liver and spleen not palpable. PSYCHIATRY: Alert and oriented x3. Mood and affect normal. INVESTIGATIONS: Two-D echo is pending. BUN and creatinine are normal. INR 2.4. ASSESSMENT: 1. Right middle lobe pneumonia; consider Gram-negative organism; with some clinical improvement. 2. Acute bronchospasm, improving. 3. Possible acute and chronic congestive heart failure exacerbation from diastolic dysfunction; ejection fraction 50% to 55% in 2013. Repeat echocardiogram pending. 4. Moderate to severe tricuspid regurgitation, non-rheumatic. 5. Moderate to severe pulmonary hypertension; could be from underlying chronic obstructive pulmonary disease. 6. Essential hypertension. 7. Hyperlipidemia. 8. Diabetes mellitus, type 2. 9. Coumadin monitoring for therapeutic level. 10. Obesity; body mass index greater than 40; morbid type. 11. Cervical spine degenerative joint disease. 12. Persistent atrial fibrillation, rate controlled. 13. Possible obesity hypoventilation syndrome. PLAN: Will use Antonio wraps on the lower extremity pending 2-D echo. Continue current medication and treatment plan. Will give the patient another short burst of IV steroids. Will follow.
[2016-04-04 20:51] LABS: Glucose,Whole Blood 171 mg/dL (75-99)
[2016-04-04] MEDS: PRAVASTATIN SODIUM 20 MG TAB PO SCH (22:01)
[2016-04-04] MEDS: INSULIN LISPRO (humaLOG) 300 UNIT/3 ML VIAL SQ SCH (22:01)
[2016-04-05 07:21] LABS: Glucose,Whole Blood 175 mg/dL (75-99)
[2016-04-05 07:34] LABS: INR 2.5 (<1.1); Prothrombin Time 23.8 sec (9.0-12.0)
[2016-04-05] MEDS: IPRATROPIUM-ALBUTEROL 3 ML NEB INHALATION SCH ×2 (08:06→11:41)
[2016-04-05] MEDS: BUDESONIDE 0.5 MG/2 ML NEBU INHALATION SCH ×2 (08:15→20:51)
[2016-04-05] MEDS: FUROSEMIDE 40 MG TAB PO SCH ×2 (09:01→17:11)
[2016-04-05] MEDS: PANTOPRAZOLE 40 MG TABLET PO SCH (09:02)
[2016-04-05] MEDS: GABAPENTIN 400 MG CAP PO SCH ×3 (09:02→21:31)
[2016-04-05] MEDS: DOCUSATE 100 MG CAP PO SCH ×2 (09:02→21:31)
[2016-04-05] MEDS: INSULIN LISPRO (humaLOG) 300 UNIT/3 ML VIAL SQ SCH ×4 (09:03→21:33)
[2016-04-05] MEDS: methylPREDNISolone SOD SUCCI 40 MG/ML 1 ML VIAL IV SCH ×3 (09:03→23:58)
[2016-04-05] MEDS: glipiZIDE 5 MG TAB PO SCH (09:05)
[2016-04-05] MEDS: amLODIPine 2.5 MG TAB PO SCH (09:05)
[2016-04-05] MEDS: AZITHROMYCIN 500 MG TAB PO SCH (09:06)
[2016-04-05] MEDS: LISINOPRIL 20 MG TAB PO SCH (09:07)
[2016-04-05] MEDS: MULTIVITAMINS, THERA 1 EACH TAB PO SCH (09:08)
[2016-04-05] MEDS: METOPROLOL SUCCINATE (ER) 25 MG TAB.ER.24H PO SCH (09:08)
[2016-04-05] MEDS: POTASSIUM CHLORIDE ER 20 MEQ TAB.ER PO SCH ×2 (09:08→21:31)
[2016-04-05] MEDS: TAMSULOSIN 0.4 MG CAP.ER.24H PO SCH (09:08)
[2016-04-05] MEDS: ACETAMINOPHEN TAB 325 MG TAB PO PRN ×2 (09:11→21:30)
[2016-04-05 11:46] LABS: Glucose,Whole Blood 171 mg/dL (75-99)
[2016-04-05] MEDS ORDERED: LEVALBUTEROL NEB (CONC) 1.25 MG/0.5 ML AMP INHALATION PRN (11:54)
[2016-04-05] MEDS ORDERED: IPRATROPIUM 0.5 MG/2.5 ML NEBU INHALATION PRN (11:55)
[2016-04-05] MEDS: IPRATROPIUM 0.5 MG/2.5 ML NEBU INHALATION SCH ×3 (12:07→20:51)
[2016-04-05] MEDS: LEVALBUTEROL NEB (CONC) 1.25 MG/0.5 ML AMP INHALATION SCH ×3 (12:07→20:51)
--- NOTE | 2016-04-05 12:13 | ECHOF ---
Referral Reason:CHF MEASUREMENTS -------- HEIGHT: 165.1 cm WEIGHT: 132.4 kg BP: 130/61 RVIDd: 4.5 cm (< 3.3) IVSd: 1.2 cm (0.6 - 1.1) LVIDd: 4.5 cm (3.9 - 5.3) LVPWd: 1.0 cm (0.6 - 1.1) IVSs: 1.5 cm LVIDs: 2.8 cm LVPWs: 1.8 cm LA Diam: 4.2 cm (2.7 - 3.8) Ao Diam: 2.9 cm (2.0 - 3.7) AV Cusp: 2.3 cm (1.5 - 2.6) MV EXCURSION: 10.694 mm (> 18.000) MV EF SLOPE: 116 mm/s (70 - 150) EPSS: 0.3 cm AV maxP.39 mmHg AV meanP.19 mmHg RAP: 5.00 mmHg RVSP: 41.62 mmHg FINDINGS -------- This was a technically difficult study with suboptimal views. The left ventricular size is normal. There is borderline concentric left ventricular hypertrophy. Overall left ventricular systolic function is low-normal with, an EF between 50 - 55 %. The right ventricle is severely enlarged. The left atrium is mildly dilated. The right atrium was not well visualized. 1.5mg of Definity was utilized for enhancement of images Aortic valve is trileaflet and is mildly thickened. The mitral valve leaflets are mildly thickened. Mild mitral annular calcification present. Mild tricuspid regurgitation present. There is mild pulmonary hypertension. The right ventricular systolic pressure, as measured by Doppler, is 41.62mmHg. Trace/mild (physiologic) pulmonic regurgitation. The aortic root size is normal. The inferior vena cava is moderately dilated. There is a trivial pericardial effusion present. CONCLUSIONS -------- 1. This was a technically difficult study with suboptimal views. 2. The mitral valve leaflets are mildly thickened. 3. Mild mitral annular calcification present. 4. Mild tricuspid regurgitation present. 5. There is mild pulmonary hypertension. 6. The right ventricular systolic pressure, as measured by Doppler, is 41.62mmHg. 7. Trace/mild (physiologic) pulmonic regurgitation. 8. The aortic root size is normal. 9. The inferior vena cava is moderately dilated. 10. There is a trivial pericardial effusion present. 11. The left ventricular size is normal. 12. There is borderline concentric left ventricular hypertrophy. 13. Overall left ventricular systolic function is low-normal with, an EF between 50 - 55 %. 14. The right ventricle is severely enlarged. 15. The left atrium is mildly dilated. 16. The right atrium was not well visualized. 17. 1.5mg of Definity was utilized for enhancement of images 18. Aortic valve is trileaflet and is mildly thickened. COMMERCIAL HOUSEKEEPER: Muna Cook RDCS
--- NOTE | 2016-04-05 14:33 | P.PN ---
Subjective This is a pleasant 66-year-old morbidly obese male patient, known to Dr. Rowell for his obstructive sleep apnea that was diagnosed several years back and the patient was found to have moderately severe disease with an apnea popping index of 21 and was treated with CPAP. The patient also has multiple other medical comorbidities including chronic atrial fibrillation, diabetes mellitus, hyperlipidemia, moderately severe pulmonary hypertension as evident on previous echocardiograms. The patient states that he was in the hospital at [facility] approximately 10 days ago for complications of atrial fibrillation. Apparently was having A. fib with RVR and he was controlled and discharged home. Note that he is on long-term medical evaluation with warfarin. Following his discharge, he started expressing some cough and sputum production or shortness of breath and for that reason he presented today [facility] for further advice. Note that he has chronic atypical chest pain which she describes to be over the anterior chest and migrating to the right and left side without any association to exertion or activity. No pleurisy. No hemoptysis. No fever or chills. No major swelling in lower extremities. His chest x-ray shows a vague no other past in the right upper lobe and there is some potential infiltration of the retrocardiac area. For that reason a pulmonary consultation was requested. The patient is a nonsmoker. No reported aspiration. No travel history. A computed tomography scan of the chest revealed mild cardiomegaly with mild fluid volume overload. There is some patchy airspace disease along the left base suspicious for left lower lung pneumonia. There is also some small subcentimeter pulmonary nodules noted that could be followed up in the outpatient setting. He is seen again today 04/05/16 in follow-up. He is awake and alert in no acute distress. He is dyspneic on minimal exertion. He has a loose productive cough. Sputum sample is pending. He remains on antibiotics in the form of ceftriaxone and azithromycin. He is also on oral Lasix. He is maintaining O2 saturations in the low 90s on room air. He is currently afebrile. Objective - Vital Signs Vital signs: Vital Signs Temp 97.9 F 04/05/16 07:00 Pulse 64 04/05/16 12:22 Resp 20 04/05/16 07:00 BP 150/88 04/05/16 07:00 Pulse Ox 91 L 04/05/16 07:00 Intake & Output 04/04/16 04/05/16 04/05/16 18:59 06:59 18:59 Intake Total 60 Balance 60 Weight 132.5 kg 129 kg Intake: IV 60 .9 flush 10 cefTRIAXone 1,000 mg In 50 Sodium Chloride 0.9% 50 ml @ 100 mls/hr IVPB Q24HR [facility] Rx#:[id number] Other: # Voids 1 # Bowel Movements 1 - Exam GENERAL EXAM: Morbidly obese. Alert, active, comfortable in no apparent distress. HEAD: Normocephalic. EYES: Normal reaction of pupils, equal size. NOSE: Clear with pink turbinates. THROAT: Crowding of the posterior pharynx. No erythema or exudates. NECK: Short. No masses, no JVD. CHEST: No chest wall deformity. LUNGS: Equal air entry with faint crackles in the posterior bases. Diminished. CVS: S1 and S2 normal with no audible mumurs, regular rhythm. ABDOMEN: Obese, soft, normal bowel sounds, no guarding or rigidity. Extremities: There is trace peripheral edema. No clubbing, no cyanosis. Peripheral pulses are intact. - Labs CBC & Chem 7: 04/03/16 12:37 04/04/16 07:22 Labs: Abnormal Lab Results - Last 24 Hours (Table) 04/04/16 04/04/16 04/04/16 Range/Units 17:05 17:26 20:23 PT (9.0-12.0) sec POC Glucose (mg/dL) 67 L 69 L 171 H (75-99) mg/dL 04/05/16 04/05/16 04/05/16 Range/Units 06:57 : 11:42 PT 23.8 H (9.0-12.0) sec POC Glucose (mg/dL) 175 H 171 H (75-99) mg/dL Microbiology - Last 24 Hours (Table) 04/04/16 20:00 Gram Stain - Preliminary Sputum Sputum Culture - Preliminary Assessment and Plan Plan: Impression: #1 Acute bronchitis complicated by left lower lobe infiltrate. There is also nodular opacity in the right upper lobe and vague infiltration left retrocardiac space. #2 Morbid obesity. #3 Obstructive sleep apnea. AHI of 21. CPAP pressure at 11 cm of water in the outpatient setting. #4 Chronic atrial fibrillation, rate controlled in a therapeutic INR at 2.5. #5 Diabetes mellitus, type II. #6 Hypertension. #7 Hyperlipidemia. #8 Degenerative arthritis. Plan: The patient was seen and evaluated by Dr. Rowell. His CAT scan was reviewed. The results were reviewed with the patient. We'll continue with his current medications including bronchodilators, antibiotics in the form of ceftriaxone and azithromycin, IV Solu-Medrol. He remains on Lasix 40 mg twice a day. We' ll continue with warfarin for anticoagulation. He remains on Protonix for GI prophylaxis. We'll increase his activity as tolerated. We'll continue to follow make further recommendations based on his clinical status.
[2016-04-05 17:16] LABS: Glucose,Whole Blood 138 mg/dL (75-99)
[2016-04-05] MEDS: WARFARIN 5 MG TAB PO SCH (17:17)
[2016-04-05 21:09] LABS: Glucose,Whole Blood 175 mg/dL (75-99)
[2016-04-05] MEDS: PRAVASTATIN SODIUM 20 MG TAB PO SCH (21:31)
--- NOTE | 2016-04-06 06:39 | PN ---
DATE OF SERVICE: 04/05/2016 PRESENTING COMPLAINT: Short of breath. INTERVAL HISTORY: Patient admitted with pneumonia and bronchospasm, CHF exacerbation. Found to have severe secondary pulmonary hypertension. Continues to feel better. Antonio wrap is helping him with his edema. The patient has been up to the bathroom. Review of systems done for constitutional, cardiovascular, GI, pulmonary; relevant findings. Current medications are reviewed and include IV ceftriaxone and Solu-Medrol. On examination, temperature 97.1, pulse 55, respirations 18, blood pressure 130/76, pulse ox 93% on room air. GENERAL APPEARANCE: Sitting up, not in distress. EYES: Pupils equal. Conjunctivae normal. NECK: JVD unable to assess. Mass not palpable. RESPIRATORY: Effort increased. LUNGS: Decreased wheezing. CARDIOVASCULAR: First and second sounds normal. Decreased edema. ABDOMEN: Soft, nontender. Liver and spleen not palpable. PSYCHIATRY: Alert and oriented x3. Mood and affect normal. INVESTIGATIONS: INR is 2.5. ASSESSMENT: 1. Right middle lobe pneumonia consider gram-negative organism with some improvement. 2. Acute bronchospasm, improved. 3. Acute on chronic congestive heart failure exacerbation from diastolic dysfunction; ejection fraction 50% to 55%. 4. Hypertensive heart disease. 5. Moderate to severe tricuspid regurgitation, nonrheumatic. 6. Moderate to severe pulmonary hypertension, probably from underlying chronic obstructive pulmonary disease. 7. Essential hypertension. 8. Hyperlipidemia. 9. Diabetes mellitus type 2. 10. Coumadin monitoring with therapeutic level. 11. Obesity, body mass index greater than 40. 12. Cervical spine degenerative joint disease. 13. Persistent atrial fibrillation, rate controlled. 14. Possible obesity hypoventilation syndrome. PLAN: Care was discussed with the patient. Overall doing better. Keep the patient on IV Solu-Medrol for another 24 hours. Looking at discharge in 24 to 48 hours. Care was discussed with the patient. Encouraged to be out of bed.
[2016-04-06 06:49] LABS: Glucose,Whole Blood 190 mg/dL (75-99)
[2016-04-06] MEDS: IPRATROPIUM 0.5 MG/2.5 ML NEBU INHALATION SCH ×4 (07:00→19:31)
[2016-04-06] MEDS: LEVALBUTEROL NEB (CONC) 1.25 MG/0.5 ML AMP INHALATION SCH ×4 (07:00→19:31)
[2016-04-06] MEDS: BUDESONIDE 0.5 MG/2 ML NEBU INHALATION SCH ×2 (07:00→19:31)
[2016-04-06 07:27] LABS: Anisocytosis Slight; Basophils % (A) 0 %; CH 31.3; CHCM 32.5; Eosinophils % (A) 0 %; HCT 38.1 % (39.0-53.0); HDW 2.73; Luc # (Auto) 0.08; Luc % (Auto) 1; Lymphocytes # (A) 0.5 k/uL (1.0-4.8); Lymphocytes % (A) 4 %; MCH 30.3 pg (25.0-35.0); MCHC 31.4 g/dL (31.0-37.0); MCV 96.7 fL (80.0-100.0); Monocytes # (A) 0.4 k/uL (0-1.0); Monocytes % (A) 3 %; Neutrophils # (A) 11.7 k/uL (1.3-7.7); Neutrophils % (A) 93 %; RBC 3.94 m/uL (4.30-5.90); RDW 16.4 % (11.5-15.5); WBC 12.7 k/uL (3.8-10.6); WBC (Perox) 13.32
[2016-04-06 07:31] LABS: INR 3.4 (<1.1); Prothrombin Time 33.1 sec (9.0-12.0)
[2016-04-06 07:46] LABS: Anion Gap 13 mmol/L; Blood Urea Nitrogen 31 mg/dL (9-20); Calcium 9.5 mg/dL (8.4-10.2); Carbon Dioxide 26 mmol/L (22-30); Chloride 101 mmol/L (98-107); Glucose 201 mg/dL (74-99); Non-African American GFR(MDRD) 60 (>60 ml/min/1.73 sqM); Potassium 5.1 mmol/L (3.5-5.1); Sodium 140 mmol/L (137-145)
[2016-04-06] MEDS: GABAPENTIN 400 MG CAP PO SCH ×3 (08:14→20:41)
[2016-04-06] MEDS: methylPREDNISolone SOD SUCCI 40 MG/ML 1 ML VIAL IV SCH (08:14)
[2016-04-06] MEDS: glipiZIDE 5 MG TAB PO SCH (08:14)
[2016-04-06] MEDS: INSULIN LISPRO (humaLOG) 300 UNIT/3 ML VIAL SQ SCH ×4 (08:14→20:35)
[2016-04-06] MEDS: METOPROLOL SUCCINATE (ER) 25 MG TAB.ER.24H PO SCH (08:16)
[2016-04-06] MEDS: POTASSIUM CHLORIDE ER 20 MEQ TAB.ER PO SCH ×2 (08:17→20:39)
[2016-04-06] MEDS: PANTOPRAZOLE 40 MG TABLET PO SCH (08:17)
[2016-04-06] MEDS: TAMSULOSIN 0.4 MG CAP.ER.24H PO SCH (08:18)
[2016-04-06] MEDS: MULTIVITAMINS, THERA 1 EACH TAB PO SCH (08:18)
[2016-04-06] MEDS: LISINOPRIL 20 MG TAB PO SCH (08:18)
[2016-04-06] MEDS: amLODIPine 2.5 MG TAB PO SCH (08:18)
[2016-04-06] MEDS: FUROSEMIDE 40 MG TAB PO SCH ×2 (08:18→16:19)
[2016-04-06] MEDS: DOCUSATE 100 MG CAP PO SCH ×2 (08:19→20:41)
[2016-04-06] MEDS: WARFARIN 5 MG TAB PO SCH (08:19)
[2016-04-06] MEDS: AZITHROMYCIN 500 MG TAB PO SCH (08:19)
[2016-04-06 11:40] LABS: Glucose,Whole Blood 152 mg/dL (75-99)
--- NOTE | 2016-04-06 14:56 | P.PN ---
Subjective This is a pleasant 66-year-old morbidly obese male patient, known to Dr. Rowell for his obstructive sleep apnea that was diagnosed several years back and the patient was found to have moderately severe disease with an apnea popping index of 21 and was treated with CPAP. The patient also has multiple other medical comorbidities including chronic atrial fibrillation, diabetes mellitus, hyperlipidemia, moderately severe pulmonary hypertension as evident on previous echocardiograms. The patient states that he was in the hospital at [facility] approximately 10 days ago for complications of atrial fibrillation. Apparently was having A. fib with RVR and he was controlled and discharged home. Note that he is on long-term medical evaluation with warfarin. Following his discharge, he started expressing some cough and sputum production or shortness of breath and for that reason he presented today [facility] for further advice. Note that he has chronic atypical chest pain which she describes to be over the anterior chest and migrating to the right and left side without any association to exertion or activity. No pleurisy. No hemoptysis. No fever or chills. No major swelling in lower extremities. His chest x-ray shows a vague no other past in the right upper lobe and there is some potential infiltration of the retrocardiac area. For that reason a pulmonary consultation was requested. The patient is a nonsmoker. No reported aspiration. No travel history. A computed tomography scan of the chest revealed mild cardiomegaly with mild fluid volume overload. There is some patchy airspace disease along the left base suspicious for left lower lung pneumonia. There is also some small subcentimeter pulmonary nodules noted that could be followed up in the outpatient setting. He is seen again today 04/05/16 in follow-up. He is awake and alert in no acute distress. He is dyspneic on minimal exertion. He has a loose productive cough. Sputum sample is pending. He remains on antibiotics in the form of ceftriaxone and azithromycin. He is also on oral Lasix. He is maintaining O2 saturations in the low 90s on room air. He is currently afebrile. On the patient is being seen in follow-up. He continues to have some limited cough out any significant sputum production. No fever or chills. No nausea or vomiting. Tolerating diet. Still on a combination of Rocephin and Zithromax regarding a limited left lower lobe pulmonary infiltration/pneumonia. The subcentimeter nodules in the right lung were noted and this will be followed up on outpatient basis. No evidence of any malignancy at this point. Objective - Vital Signs Vital signs: Vital Signs Temp 97.4 F L 04/06/16 07:00 Pulse 72 04/06/16 07:17 Resp 20 04/06/16 08:00 BP 155/61 04/06/16 07:00 Pulse Ox 94 L 04/06/16 07:03 Intake & Output 04/05/16 04/06/16 04/06/16 18:59 06:59 18:59 Intake Total 50 Balance 50 Weight 130 kg Intake: IV 50 cefTRIAXone 1,000 mg In 50 Sodium Chloride 0.9% 50 ml @ 100 mls/hr IVPB Q24HR [facility] Rx#:[id number] Other: Voiding Method Toilet Toilet # Voids 1 # Bowel Movements 1 - Exam GENERAL EXAM: Morbidly obese. Alert, active, comfortable in no apparent distress. HEAD: Normocephalic. EYES: Normal reaction of pupils, equal size. NOSE: Clear with pink turbinates. THROAT: Crowding of the posterior pharynx. No erythema or exudates. NECK: Short. No masses, no JVD. CHEST: No chest wall deformity. LUNGS: Equal air entry with faint crackles in the posterior bases. Diminished. CVS: S1 and S2 normal with no audible mumurs, regular rhythm. ABDOMEN: Obese, soft, normal bowel sounds, no guarding or rigidity. Extremities: There is trace peripheral edema. No clubbing, no cyanosis. Peripheral pulses are intact. - Labs CBC & Chem 7: 04/06/16 07:05 04/06/16 07:05 Labs: Abnormal Lab Results - Last 24 Hours (Table) 04/05/16 04/05/16 04/06/16 Range/Units 17:13 20:47 06:48 WBC (3.8-10.6) k/uL RBC (4.30-5.90) m/uL Hgb (13.0-17.5) gm/dL Hct (39.0-53.0) % RDW (11.5-15.5) % Neutrophils # (1.3-7.7) k/uL Lymphocytes # (1.0-4.8) k/uL PT (9.0-12.0) sec BUN (9-20) mg/dL Glucose (74-99) mg/dL POC Glucose (mg/dL) 138 H 175 H 190 H (75-99) mg/dL 04/06/16 04/06/16 04/06/16 Range/Units 07:05 07:05 07:05 WBC 12.7 H (3.8-10.6) k/uL RBC 3.94 L (4.30-5.90) m/uL Hgb 12.0 L (13.0-17.5) gm/dL Hct 38.1 L (39.0-53.0) % RDW 16.4 H (11.5-15.5) % Neutrophils # 11.7 H (1.3-7.7) k/uL Lymphocytes # 0.5 L (1.0-4.8) k/uL PT 33.1 H (9.0-12.0) sec BUN 31 H (9-20) mg/dL Glucose 201 H (74-99) mg/dL POC Glucose (mg/dL) (75-99) mg/dL 04/06/16 Range/Units 11:38 WBC (3.8-10.6) k/uL RBC (4.30-5.90) m/uL Hgb (13.0-17.5) gm/dL Hct (39.0-53.0) % RDW (11.5-15.5) % Neutrophils # (1.3-7.7) k/uL Lymphocytes # (1.0-4.8) k/uL PT (9.0-12.0) sec BUN (9-20) mg/dL Glucose (74-99) mg/dL POC Glucose (mg/dL) 152 H (75-99) mg/dL Microbiology - Last 24 Hours (Table) 04/04/16 20:00 Gram Stain - Final Sputum Sputum Culture - Final Assessment and Plan Plan: Assessment 1 left lower lobe pneumonia as evident on the CAT scan of the chest. Currently on a combination of Rocephin and Zithromax.. 2 . Subcentimeter pulmonary nodules, will need to be followed up on outpatient basis. No evidence of any malignancy. 3 obstructive sleep apnea. Based on apnea popping index of 21 and the patient was supposed to be on a CPAP pressure of 11 cm of water. 4 chronic atrial fibrillation, rate controlled with a therapeutic PT/INR. 5 diabetes mellitus type 2 6 hypertension 7 hyperlipidemia 8 degenerative arthritis 9 long-term articulation for chronic atrial fibrillation fibrillation and the patient has a therapeutic PT/INR. 10 morbid obesity Plan Continued same treatment. We'll follow.
[2016-04-06] MEDS: predniSONE 20 MG TAB PO SCH (16:18)
[2016-04-06 17:07] LABS: Glucose,Whole Blood 132 mg/dL (75-99)
--- NOTE | 2016-04-06 17:57 | PN ---
DATE OF SERVICE: 04/06/2016 PRESENTING COMPLAINT: Short of breath. INTERVAL HISTORY: Patient was admitted with pneumonia, bronchospasm, CHF exacerbation. Patient did walk about 100 feet with a rolling walker. Edema has come down. Cough is improved. Tolerating his diet. Review of systems done for constitutional, cardiovascular, GI, pulmonary; relevant findings as above. Current medications are reviewed that include IV ceftriaxone and Solu-Medrol. On examination, temperature 97.4, pulse 65, respirations 20, blood pressure 155/61, pulse ox 94% on room air. GENERAL APPEARANCE: Lying in bed, not in distress. EYES: Pupils equal. Conjunctivae normal. NECK: JVD not raised. Mass not palpable. Respiratory effort increased. LUNGS: Improved air entry. CARDIOVASCULAR: First and second sounds normal, decreased edema. ABDOMEN: Soft, nontender. Liver and spleen not palpable. PSYCHIATRY: Alert and oriented x3. Mood and affect normal. INVESTIGATIONS: White count 12.7, hemoglobin 12, potassium 5.1. ASSESSMENT: 1. Right middle lobe pneumonia, consider gram-negative organism with clinical improvement. 2. Acute bronchospasm, much improved. 3. Acute on chronic congestive heart failure exacerbation from diastolic dysfunction; ejection fraction 50% to 55%. 4. Hypertensive heart disease. 5. Moderate to severe tricuspid regurgitation, nonrheumatic. 6. Moderate to severe pulmonary hypertension, probably underlying chronic obstructive pulmonary disease. 7. Essential hypertension. 8. Hyperlipidemia. 9. Diabetes mellitus type 2. 10. Coumadin monitoring for therapeutic level. 11. Obesity, body mass index greater than 40. 12. Cervical spine degenerative joint disease. 13. Persistent atrial fibrillation, rate controlled. 14. Possible obesity hypoventilation syndrome. PLAN: Overall doing much better. Looking at probably discharge in the next 24 hours, will switch the patient to prednisone in the morning.
[2016-04-06 20:15] LABS: Glucose,Whole Blood 258 mg/dL (75-99)
[2016-04-06 20:41] LABS: Glucose,Whole Blood 291 mg/dL (75-99)
[2016-04-06] MEDS: PRAVASTATIN SODIUM 20 MG TAB PO SCH (20:41)
[2016-04-06] MEDS: ACETAMINOPHEN TAB 325 MG TAB PO PRN (20:46)
[2016-04-06 22:02] LABS: Glucose,Whole Blood 247 mg/dL (75-99)
[2016-04-07 01:06] LABS: Glucose,Whole Blood 131 mg/dL (75-99)
[2016-04-07 07:48] LABS: INR 3.8 (<1.1)
[2016-04-07] MEDS: BUDESONIDE 0.5 MG/2 ML NEBU INHALATION SCH (08:01)
[2016-04-07] MEDS: IPRATROPIUM 0.5 MG/2.5 ML NEBU INHALATION SCH ×3 (08:01→15:30)
[2016-04-07] MEDS: LEVALBUTEROL NEB (CONC) 1.25 MG/0.5 ML AMP INHALATION SCH ×3 (08:02→15:30)
[2016-04-07 08:04] LABS: Glucose,Whole Blood 124 mg/dL (75-99)
[2016-04-07 08:41] VITALS: RESP 17
[2016-04-07] MEDS: INSULIN LISPRO (humaLOG) 300 UNIT/3 ML VIAL SQ SCH ×2 (08:47→13:29)
[2016-04-07] MEDS: AZITHROMYCIN 500 MG TAB PO SCH (09:26)
[2016-04-07] MEDS: FUROSEMIDE 40 MG TAB PO SCH ×2 (09:26→16:37)
[2016-04-07] MEDS: TAMSULOSIN 0.4 MG CAP.ER.24H PO SCH (09:26)
[2016-04-07] MEDS: LISINOPRIL 20 MG TAB PO SCH (09:26)
[2016-04-07] MEDS: POTASSIUM CHLORIDE ER 20 MEQ TAB.ER PO SCH (09:26)
[2016-04-07] MEDS: glipiZIDE 5 MG TAB PO SCH (09:26)
[2016-04-07] MEDS: GABAPENTIN 400 MG CAP PO SCH ×2 (09:26→16:37)
[2016-04-07] MEDS: predniSONE 20 MG TAB PO SCH (09:26)
[2016-04-07] MEDS: amLODIPine 2.5 MG TAB PO SCH (09:26)
[2016-04-07] MEDS: METOPROLOL SUCCINATE (ER) 25 MG TAB.ER.24H PO SCH (09:26)
[2016-04-07] MEDS: PANTOPRAZOLE 40 MG TABLET PO SCH (09:26)
[2016-04-07] MEDS: DOCUSATE 100 MG CAP PO SCH (09:27)
[2016-04-07 11:24] LABS: Glucose,Whole Blood 168 mg/dL (75-99)
[2016-04-07] MEDS: MULTIVITAMINS, THERA 1 EACH TAB PO SCH (13:29)
--- NOTE | 2016-04-07 15:43 | P.PN ---
Subjective Principal diagnosis: Acute left lower lobe pneumonia This is a pleasant 66-year-old morbidly obese male patient, known to Dr. Rowell for his obstructive sleep apnea that was diagnosed several years back and the patient was found to have moderately severe disease with an apnea popping index of 21 and was treated with CPAP. The patient also has multiple other medical comorbidities including chronic atrial fibrillation, diabetes mellitus, hyperlipidemia, moderately severe pulmonary hypertension as evident on previous echocardiograms. The patient states that he was in the hospital at [facility] approximately 10 days ago for complications of atrial fibrillation. Apparently was having A. fib with RVR and he was controlled and discharged home. Note that he is on long-term medical evaluation with warfarin. Following his discharge, he started expressing some cough and sputum production or shortness of breath and for that reason he presented today [facility] for further advice. Note that he has chronic atypical chest pain which she describes to be over the anterior chest and migrating to the right and left side without any association to exertion or activity. No pleurisy. No hemoptysis. No fever or chills. No major swelling in lower extremities. His chest x-ray shows a vague no other past in the right upper lobe and there is some potential infiltration of the retrocardiac area. For that reason a pulmonary consultation was requested. The patient is a nonsmoker. No reported aspiration. No travel history. A computed tomography scan of the chest revealed mild cardiomegaly with mild fluid volume overload. There is some patchy airspace disease along the left base suspicious for left lower lung pneumonia. There is also some small subcentimeter pulmonary nodules noted that could be followed up in the outpatient setting. He is seen again today 04/05/16 in follow-up. He is awake and alert in no acute distress. He is dyspneic on minimal exertion. He has a loose productive cough. Sputum sample is pending. He remains on antibiotics in the form of ceftriaxone and azithromycin. He is also on oral Lasix. He is maintaining O2 saturations in the low 90s on room air. He is currently afebrile. On the patient is being seen in follow-up. He continues to have some limited cough out any significant sputum production. No fever or chills. No nausea or vomiting. Tolerating diet. Still on a combination of Rocephin and Zithromax regarding a limited left lower lobe pulmonary infiltration/pneumonia. The subcentimeter nodules in the right lung were noted and this will be followed up on outpatient basis. No evidence of any malignancy at this point. On 04/07/2016, patient seems to be doing a bit better, breathing a bit easier, continues to have intermittent cough and wheezing. Cough is slightly productive with mostly yellow phlegm. No fever no chills no hemoptysis and no chest pain. CBC was reviewed and it seems to be relatively normal, WBC count is 12.7. INR is 3.8 Objective - Vital Signs Vital signs: Vital Signs Temp 97.9 F 04/07/16 07:00 Pulse 74 04/07/16 15:30 Resp 17 04/07/16 07:00 BP 177/90 04/07/16 07:00 Pulse Ox 96 04/07/16 07:00 Intake & Output 04/06/16 04/07/16 04/07/16 18:59 06:59 18:59 Intake Total 100 Balance 100 Weight 129.85 kg Intake: IV 100 cefTRIAXone 1,000 mg In 100 Sodium Chloride 0.9% 50 ml @ 100 mls/hr IVPB Q24HR [facility] Rx#:[id number] Other: Voiding Method Toilet Toilet Toilet # Voids 2 1 - Exam GENERAL EXAM: Morbidly obese. Alert, active, comfortable in no apparent distress. HEAD: Normocephalic. EYES: Normal reaction of pupils, equal size. NOSE: Clear with pink turbinates. THROAT: Crowding of the posterior pharynx. No erythema or exudates. NECK: Short. No masses, no JVD. CHEST: No chest wall deformity. LUNGS: Equal air entry with faint crackles in the posterior bases. Diminished. CVS: S1 and S2 normal with no audible mumurs, regular rhythm. ABDOMEN: Obese, soft, normal bowel sounds, no guarding or rigidity. Extremities: There is trace peripheral edema. No clubbing, no cyanosis. Peripheral pulses are intact. - Labs CBC & Chem 7: 04/06/16 07:05 04/06/16 07:05 Labs: Abnormal Lab Results - Last 24 Hours (Table) 04/06/16 04/06/16 04/06/16 Range/Units 17:01 20:13 20:35 PT (9.0-12.0) sec POC Glucose (mg/dL) 132 H 258 H 291 H (75-99) mg/dL 04/06/16 04/07/16 04/07/16 Range/Units 22:01 01:03 07:04 PT 37.0 H (9.0-12.0) sec POC Glucose (mg/dL) 247 H 131 H (75-99) mg/dL 04/07/16 04/07/16 Range/Units 08:02 11:23 PT (9.0-12.0) sec POC Glucose (mg/dL) 124 H 168 H (75-99) mg/dL Microbiology - Last 24 Hours (Table) 04/04/16 20:00 Gram Stain - Final Sputum Sputum Culture - Final Assessment and Plan Plan: 1 acute left lower lobe pneumonia as evident on the CAT scan of the chest. This is community-acquired Currently on a combination of Rocephin and Zithromax.. 2 . Subcentimeter pulmonary nodules, will need to be followed up on outpatient basis. No evidence of any malignancy. 3 obstructive sleep apnea. Based on apnea popping index of 21 and the patient was supposed to be on a CPAP pressure of 11 cm of water. 4 chronic atrial fibrillation, rate controlled with a therapeutic PT/INR. 5 diabetes mellitus type 2 6 hypertension 7 hyperlipidemia 8 degenerative arthritis 9 long-term articulation for chronic atrial fibrillation fibrillation and the patient has a therapeutic PT/INR. 10 morbid obesity Plan Continued same treatment. We'll follow. Time with Patient: Less than 30
[2016-04-07 16:51] VITALS: BP 130/59; PULSE 67; TEMP 97.8
--- NOTE | 2016-04-08 09:16 | DS ---
DATE OF ADMISSION: 04/03/2016 DATE OF DISCHARGE: 04/07/2016 FINAL DIAGNOSES: 1. Right middle lobe pneumonia, consider gram-negative organism with clinical improvement. 2. Chronic obstructive pulmonary disease exacerbation. 3. Acute on chronic congestive heart failure exacerbation from diastolic dysfunction, ejection fraction 50% to 55% from underlying hypertensive heart disease. 4. Hypertensive heart disease. 5. Moderate to severe tricuspid regurgitation, nonrheumatic. 6. Moderate to severe secondary pulmonary hypertension, from underlying chronic obstructive pulmonary disease. 7. Essential hypertension. 8. Hyperlipidemia. 9. Diabetes mellitus type II. 10. Coumadin monitoring for therapeutic level. 11. Obesity, body mass index greater than 40. 12. Cervical spine degenerative joint disease. 13. Persistent atrial fibrillation, rate controlled. 14. Possible obesity hypoventilation syndrome. HOSPITAL COURSE: This patient presented with pneumonia, CHF exacerbation, doing much better by the time of discharge. A 2-D echo showed preserved LV function. CT scan of the chest did show pneumonia and also showed some pulmonary nodules seen by Pulmonary. On examination, lungs improved air entry. PSYCH: Alert and oriented x3. CONSULTATION: 1. Dr. Rowell from Pulmonary. 2. Dr. Enma Raymundo from Cardiology. Care was discussed in detail with the patient at time of discharge. DISCHARGE MEDICATIONS: 1. Vasotec 20 mg a day. 2. Pravachol 20 mg q.h.s. 3. Prilosec 20 mg with breakfast. 4. Norvasc 2.5 mg a day. 5. Glucotrol 500 mg with breakfast. 6. Pulmicort 1 puff b.i.d. 7. Therapeutic-M 1 tablet p.o. daily. 8. Neurontin 400 mg p.o. t.i.d. 9. Toprol-XL 25 mg a day. 10. Flomax 0.4 mg a day. 11. Lasix 40 mg a day. 12. Atrovent 0.5 inhalation q.i.d. 13. Potassium 20 mEq a day. 14. Coumadin 5 mg p.o. daily. 15. Prednisone 20 mg a day for 5 days. Follow up with Dr. Brody in 3 days. Follow up with Dr. Rowell in one week. Coordination of care and DC planning more than 35 minutes.
== END 2016-04-07 17:07 | disposition home or self-care (01) | DRG 291 ==
LOC: EC 12:31 → 5MS5E 16:38
PROVIDERS: ADMIT Hospitalist; ATTEND Hospitalist
DX: I11.0 Hypertensive heart disease with heart failure (principal); J15.6 Pneumonia due to other Gram-negative bacteria; J44.0 Chronic obstructive pulmonary disease with (acute) lower respiratory infection; I48.1 Persistent atrial fibrillation; J44.1 Chronic obstructive pulmonary disease with (acute) exacerbation; I27.2 Other secondary pulmonary hypertension; E11.42 Type 2 diabetes mellitus with diabetic polyneuropathy; I48.2 Chronic atrial fibrillation; I50.33 Acute on chronic diastolic (congestive) heart failure; E66.01 Morbid (severe) obesity due to excess calories; I07.1 Rheumatic tricuspid insufficiency; E78.5 Hyperlipidemia, unspecified; G25.81 Restless legs syndrome; G47.33 Obstructive sleep apnea (adult) (pediatric); J20.9 Acute bronchitis, unspecified; M10.9 Gout, unspecified; M47.812 Spondylosis without myelopathy or radiculopathy, cervical region; F32.9 Major depressive disorder, single episode, unspecified; G89.29 Other chronic pain; N28.1 Cyst of kidney, acquired; N42.9 Disorder of prostate, unspecified; M54.9 Dorsalgia, unspecified; R91.8 Other nonspecific abnormal finding of lung field; Z68.42 Body mass index [BMI] 45.0-49.9, adult; Z79.01 Long term (current) use of anticoagulants; Z79.84 Long term (current) use of oral hypoglycemic drugs; Z79.899 Other long term (current) drug therapy; Z88.8 Allergy status to other drugs, medicaments and biological substances; Z87.891 Personal history of nicotine dependence; Z96.60 Presence of unspecified orthopedic joint implant
CPT/HCPCS: 36415; 71020; 71260; 80048; 80053; 81003; 82550; 82553; 83735; 83880; 84484; 85025; 85379; 85610; 85730; 87070; 87205; 93005; 93306; 94640; 94760; 96374; 99285